=== PATIENT | male | born 1980 | race Caucasian/White ===

== ENCOUNTER 2020-01-02 10:04 | Outpatient (CLI) | payer MEDICARE, MEDICAID, SELFPAY ==
--- NOTE | 2020-01-02 | XR_ITS ---
WS: [id number] RIGHT SHOULDER: 3 VIEW(S) TECHNIQUE: Internal and external rotation with Y view. HISTORY: RIGHT SHOULDER PAIN COMPARISON: None available. No fracture or dislocation or soft tissue abnormality. Glenohumeral and AC joints are unremarkable. XR/XR shoulder RT min 2V* [id number] IMPRESSION: Normal RIGHT shoulder.
== END 2020-01-02 10:05 | disposition home or self-care (01) ==
LOC: RADOUTREAD 13:16
PROVIDERS: Family Provider Internal Medicine; PCP Internal Medicine; Visit Provider Internal Medicine
DX: Z76.89 Persons encountering health services in other specified circumstances (principal)

== ENCOUNTER 2020-01-16 11:43 | Outpatient (RCR) | payer MEDICARE, MEDICAID, SELFPAY | END 2020-01-21 23:59 | disposition home or self-care (01) | LOC: SPT 11:43 | PROVIDERS: Family Provider Internal Medicine; PCP Internal Medicine; Referring Provider Internal Medicine; Visit Provider Internal Medicine | DX: M25.511 Pain in right shoulder (principal) | CPT/HCPCS: 97110; 97112; 97161 ==

== ENCOUNTER → 2020-01-20 10:46 | Outpatient (BNVA) | payer MEDICARE, MEDICAID, SELFPAY | PROVIDERS: Family Provider Internal Medicine; PCP Internal Medicine; Visit Provider Nurse Practitioner | DX: M54.9 Dorsalgia, unspecified (principal); M25.561 Pain in right knee; M25.519 Pain in unspecified shoulder; Z79.891 Long term (current) use of opiate analgesic | CPT/HCPCS: 99214 ==

== ENCOUNTER 2020-01-22 06:00 | Outpatient (RCR) | payer MEDICARE, MEDICAID, SELFPAY | END 2020-02-21 23:59 | disposition home or self-care (01) | LOC: SPT 06:00 | PROVIDERS: Family Provider Internal Medicine; PCP Internal Medicine; Referring Provider Internal Medicine; Visit Provider Internal Medicine | DX: M25.511 Pain in right shoulder (principal) | CPT/HCPCS: 97110 ==

== ENCOUNTER → 2020-05-22 10:54 | Outpatient (BNVA) | payer MEDICARE, MEDICAID, SELFPAY | PROVIDERS: Family Provider Internal Medicine; PCP Internal Medicine; Visit Provider Anesthesiology | DX: M54.41 Lumbago with sciatica, right side (principal); M54.42 Lumbago with sciatica, left side; G89.29 Other chronic pain; M25.569 Pain in unspecified knee; Z79.891 Long term (current) use of opiate analgesic | CPT/HCPCS: 99214 ==

== ENCOUNTER → 2020-07-24 08:24 | Outpatient (BNVA) | payer MEDICARE, MEDICAID, SELFPAY | PROVIDERS: Family Provider Internal Medicine; PCP Internal Medicine; Visit Provider Anesthesiology | DX: G89.29 Other chronic pain (principal); M54.42 Lumbago with sciatica, left side; M54.41 Lumbago with sciatica, right side; M25.569 Pain in unspecified knee; Z79.891 Long term (current) use of opiate analgesic | CPT/HCPCS: 99214 ==

== ENCOUNTER → 2020-09-19 09:18 | Outpatient (BNVA) | payer MEDICARE, MEDICAID, SELFPAY | PROVIDERS: Family Provider Internal Medicine; PCP Internal Medicine; Visit Provider Anesthesiology | DX: M54.41 Lumbago with sciatica, right side (principal); M54.42 Lumbago with sciatica, left side; Z79.891 Long term (current) use of opiate analgesic | CPT/HCPCS: 99213; 99214 ==

== ENCOUNTER → 2020-11-06 08:25 | Outpatient (BNVA) | payer MEDICARE, MEDICAID, SELFPAY | PROVIDERS: Family Provider Internal Medicine; PCP Internal Medicine; Visit Provider Anesthesiology | DX: G89.29 Other chronic pain (principal); M54.5 Low back pain; M25.569 Pain in unspecified knee; Z79.891 Long term (current) use of opiate analgesic | CPT/HCPCS: 99213; 99214 ==

== ENCOUNTER → 2021-01-18 09:35 | Outpatient (BNVA) | payer MEDICARE, MEDICAID, SELFPAY | PROVIDERS: PCP Internal Medicine; Visit Provider Nurse Practitioner | DX: G89.29 Other chronic pain (principal); M54.5 Low back pain; M25.561 Pain in right knee; Z79.891 Long term (current) use of opiate analgesic | CPT/HCPCS: 99213; 99214 ==

== ENCOUNTER 2021-01-22 16:26 | Outpatient (CLI) | payer MEDICARE, MEDICAID, SELFPAY ==
--- NOTE | 2021-01-22 | MR_ITS ---
WS: [id number] MRI LEFT KNEE HISTORY: INTERNAL DERANGEMENT OF LEFT KNEE COMPARISON: 10/31/2017 Anterior cruciate ligament: Mild thinning of the ACL. There is very slight change in contour the mid to distal ACL which is probably an area of fibrosis and scarring. There is an osteophyte from the pos terior tibial plateau extending superiorly towards the ACL and may be causing some impingement. No fu ll-thickness tear. Posterior cruciate ligament: Intact. Medial collateral ligament: Intact. Posterior lateral corner structures: Intact. Medial menisci: Intact. Normal signal, size and shape. Lateral meniscus: Intact. Normal signal, size and shape. Extensor mechanism: Distal quadriceps tendon and patellar tendons are intact. Fluid and soft tissue: No joint effusion. No Kasper's cyst. Osseous and articular structures: Patellofemoral compartment: Mild irregularity in the cartilage surrounding the patella, greatest late rally. No full-thickness defects or marrow edema. No significant progression since the prior exam. Medial compartment: Mild narrowing medial compartment. There is fissuring and thinning of the cartila ge. No marrow edema or fracture. Lateral compartment: Mild narrowing of the lateral compartment with thinning and fissuring of the car tilage. No marrow edema or full-thickness cartilage defect. MR/MR knee LT wo con* [id number] IMPRESSION: 1. No fracture. 2. Mild thinning of the ACL but no full-thickness tear. Slight change in conto ur of the ACL suggests scarring and fibrosis. 3. Mild tricompartment osteoarthritis with cartilage thinning. No marrow edema or full-thickness cartilage defects.
== END 2021-01-22 16:27 | disposition home or self-care (01) ==
LOC: RADSHAW 16:30
PROVIDERS: PCP Internal Medicine; Visit Provider Internal Medicine
DX: M23.92 Unspecified internal derangement of left knee (principal); M17.12 Unilateral primary osteoarthritis, left knee
CPT/HCPCS: 73721

== ENCOUNTER → 2021-03-19 09:04 | Outpatient (BNVA) | payer MEDICARE, MEDICAID, SELFPAY | PROVIDERS: PCP Internal Medicine; Visit Provider Nurse Practitioner | DX: G89.29 Other chronic pain (principal); M54.5 Low back pain; M25.562 Pain in left knee; Z79.891 Long term (current) use of opiate analgesic | CPT/HCPCS: 99214 ==

== ENCOUNTER → 2021-04-11 09:58 | Outpatient (BNVA) | payer MEDICARE, MEDICAID, SELFPAY | PROVIDERS: PCP Internal Medicine; Visit Provider Anesthesiology | DX: G89.29 Other chronic pain (principal); M54.5 Low back pain; M25.561 Pain in right knee; M25.562 Pain in left knee; Z79.891 Long term (current) use of opiate analgesic | CPT/HCPCS: 99214 ==

== ENCOUNTER → 2021-06-19 13:33 | Outpatient (BNVA) | payer MEDICARE, MEDICAID, SELFPAY | PROVIDERS: PCP Internal Medicine; Visit Provider Nurse Practitioner | DX: G89.29 Other chronic pain (principal); M54.5 Low back pain; M25.569 Pain in unspecified knee; Z79.891 Long term (current) use of opiate analgesic; Z87.891 Personal history of nicotine dependence | CPT/HCPCS: 99212 ==

== ENCOUNTER → 2021-08-21 10:04 | Outpatient (BNVA) | payer MEDICARE, MEDICAID, SELFPAY | PROVIDERS: PCP Internal Medicine; Visit Provider Nurse Practitioner | DX: G89.29 Other chronic pain (principal); M54.5 Low back pain; M25.561 Pain in right knee; M25.562 Pain in left knee; Z79.891 Long term (current) use of opiate analgesic | CPT/HCPCS: 99214 ==

== ENCOUNTER → 2021-10-18 08:53 | Outpatient (BNVA) | payer MEDICARE, MEDICAID, SELFPAY | PROVIDERS: PCP Internal Medicine; Visit Provider Anesthesiology | DX: G89.29 Other chronic pain (principal); M54.50 Low back pain, unspecified; M25.561 Pain in right knee; M25.562 Pain in left knee; Z79.891 Long term (current) use of opiate analgesic | CPT/HCPCS: 99214 ==

== ENCOUNTER → 2021-12-17 09:42 | Outpatient (BNVA) | payer MEDICARE, MEDICAID, SELFPAY | PROVIDERS: PCP Internal Medicine; Visit Provider Anesthesiology | DX: G89.29 Other chronic pain (principal); M54.50 Low back pain, unspecified; M25.561 Pain in right knee; M25.562 Pain in left knee; Z87.81 Personal history of (healed) traumatic fracture | CPT/HCPCS: 99213; 99214 ==

== ENCOUNTER → 2021-12-31 07:55 | Outpatient (BNVA) | payer MEDICARE, MEDICAID, SELFPAY | PROVIDERS: PCP Internal Medicine; Visit Provider Anesthesiology | DX: G89.29 Other chronic pain (principal); M54.50 Low back pain, unspecified; M25.561 Pain in right knee; M25.562 Pain in left knee; Z87.891 Personal history of nicotine dependence; Z79.891 Long term (current) use of opiate analgesic | CPT/HCPCS: 99213 ==

== ENCOUNTER 2022-04-24 16:21 | Outpatient (CLI) | payer MEDICARE, MEDICAID, SELFPAY ==
--- NOTE | 2022-04-24 16:45 | MR_ITS ---
WS: [id number] MRI LUMBAR SPINE NONCONTRAST TECHNIQUE: Sagittal T1, T2 and STIR imaging. Axial T1 and T2 imaging. CLINICAL INFORMATION: RIGHT subarticular protrusion L3-L4 impinges the traversing RIGHT L4 nerve root with mild central canal stenosis. COMPARISON: MRI 2013 FINDINGS: Mild lumbar curve. No acute compression. Small disc protrusions L1-L2, L2-L3, L3-L4. L1-L2: Shallow RIGHT pericentral protrusion with impingement RIGHT subarticular recess and RIGHT jammie ersing L2 nerve root. Foramen are patent. Mild facet arthropathy. This is similar to 2013. L2-L3: Central LEFT pericentral disc protrusion impinges the LEFT subarticular recess and traversing LEFT L3 nerve root. Mild central canal stenosis. Foramen are patent. Mild facet arthropathy. This carolin ears similar to 2013. L3-L4: Annular bulging with a RIGHT subarticular protrusion. This impinges the traversing RIGHT L4 ne rve root in the subarticular recess. Moderate facet arthropathy. Mild central canal stenosis. Foramen are patent. L4-L5: Mild annular bulging. Slight narrowing of the RIGHT greater than LEFT subarticular recess. Mod erate facet arthropathy. Foramen are patent. L5-S1: Mild annular bulging. Tiny shallow central protrusion with a tiny LEFT annular fissure. Slight impingement traversing LEFT greater than RIGHT S1 nerve roots. Moderate facet arthropathy. Foramen a re patent. Small central protrusions at T2-T3 and T5-T6 in the thoracic spine with slight contact of the thoraci c cord. This can be further evaluated with thoracic spine MRI. MR/MR lumbar spine wo con* [id number] IMPRESSION: 1. Mild lumbar curve. No acute compression. 2. Central LEFT pericentral protrusion L2-L3 appears slightly progressed alejandro red to 2013. Mild to moderate central canal stenosis. Impingement on the janna sing LEFT greater than RIGHT L3 nerve roots. Otherwise lumbar spine findings ar e similar in appearance to 2013. 3. Shallow RIGHT pericentral protrusion L1-L2 impinges the traversing RIGHT L2 nerve root. 4. Shallow RIGHT pericentral protrusion L3-L4 impinges the traversing RIGHT L4 nerve root with mild central canal stenosis. 5. Annular bulging with shallow central protrusion L5-S1 with a tiny annular t ear slightly impinges the traversing S1 nerve roots. 6. Small central protrusions at T2-T3 and T5-T6 in the thoracic spine with sli ght contact of the thoracic cord. This can be further evaluated with thoracic s pine MRI.
== END 2022-04-24 16:22 | disposition home or self-care (01) ==
LOC: RAD 16:24
PROVIDERS: PCP Internal Medicine; Visit Provider General Practice
DX: M51.16 Intervertebral disc disorders with radiculopathy, lumbar region (principal); M51.17 Intervertebral disc disorders with radiculopathy, lumbosacral region; M51.24 Other intervertebral disc displacement, thoracic region; M48.061 Spinal stenosis, lumbar region without neurogenic claudication
CPT/HCPCS: 72148

== ENCOUNTER 2022-05-01 10:48 | Outpatient (CLI) | payer MEDICARE, MEDICAID, SELFPAY ==
--- NOTE | 2022-05-01 10:59 | MR_ITS ---
WS: [id number] MRI LEFT KNEE NONCONTRAST TECHNIQUE: Axial PD, coronal PD fat sat, coronal PD, sagittal PD, and sagittal PD fat-sat images obta ined. CLINICAL INFORMATION: LEFT KNEE DERANGMENT COMPARISON: MRI January 22, 2021 FINDINGS: Distal quadriceps and patella tendons are intact. Hypertrophic patella. Normal ACL and PCL. Small brunilda unt of prepatellar soft tissue edema. Normal medial and lateral meniscus. No acute appearing meniscal tears. Mild chronic thinning of the medial and lateral meniscus. Normal MCL and LCL. Moderate chondromalacia patella worse involving the lateral patella facet. Normal medial and lateral collateral ligaments. Normal popliteal fossa. Grade II to III chondromalacia involving the medial and lateral joint compartments. No subchondral edema. MR/MR knee LT wo con* [id number] IMPRESSION: 1. Normal ACL and PCL. 2. Grade II to III chondromalacia involving the medial lateral joint compartme nts. No acute appearing meniscal tears. 3. Moderate chondromalacia patella worse involving the lateral patella facet p rogressed compared to previous. 4. Normal MCL and LCL. Outbridge grading: grade III: partial-thickness cartilage loss with focal ulcer ation
== END 2022-05-01 10:49 | disposition home or self-care (01) ==
LOC: RAD 10:51
PROVIDERS: PCP Internal Medicine; Visit Provider Internal Medicine
DX: M23.92 Unspecified internal derangement of left knee (principal); M22.42 Chondromalacia patellae, left knee
CPT/HCPCS: 73721

== ENCOUNTER → 2022-05-29 10:46 | Outpatient (BNVA) | payer MEDICARE, MEDICAID, SELFPAY | PROVIDERS: PCP Internal Medicine; Referring Provider Internal Medicine; Visit Provider Nurse Practitioner Family | DX: M25.562 Pain in left knee (principal); G89.29 Other chronic pain | CPT/HCPCS: 73560; 73565; 99204 ==

== ENCOUNTER → 2024-07-06 09:24 | Outpatient (BNVA) | payer MEDICARE, MEDICAID, SELFPAY | PROVIDERS: PCP Internal Medicine; Visit Provider Internal Medicine | DX: E78.2 Mixed hyperlipidemia; E11.319 Type 2 diabetes mellitus with unspecified diabetic retinopathy without macular edema; Z79.4 Long term (current) use of insulin; Z86.73 Personal history of transient ischemic attack (TIA), and cerebral infarction without residual deficits; Z79.84 Long term (current) use of oral hypoglycemic drugs | CPT/HCPCS: 99204 ==

== ENCOUNTER → 2024-08-05 11:37 | Outpatient (BNVA) | payer MEDICARE, MEDICAID, OTHER, SELFPAY | PROVIDERS: PCP Internal Medicine; Visit Provider Nurse Practitioner Psychiatric/Mental Health | DX: Z79.899 Other long term (current) drug therapy (principal) | CPT/HCPCS: 80053; 80061; 83036 ==

== ENCOUNTER 2024-08-11 14:17 | Outpatient (CLI) | payer MEDICARE, MEDICAID, SELFPAY ==
--- NOTE | 2024-08-11 14:27 | XR_ITS ---
WS: [id number] Left shoulder, 2 views, 08/11/2024 Clinical Data: L SHOULDER PAIN Comparison: None. Findings: No fractures or dislocations are seen. The AC joint is normal. The adjacent left clavicle, left scapu la and ribs are normal. The soft tissues are unremarkable. XR/XR shoulder LT min 2V* [id number] Impression: Negative left shoulder.
== END 2024-08-11 14:18 | disposition home or self-care (01) ==
PROVIDERS: PCP Internal Medicine; Visit Provider Nurse Practitioner Family
DX: M25.512 Pain in left shoulder (principal)
CPT/HCPCS: 73030

== ENCOUNTER → 2024-08-17 09:26 | Outpatient (BNVA) | payer MEDICARE, MEDICAID, SELFPAY | PROVIDERS: PCP Internal Medicine; Visit Provider Internal Medicine | DX: E11.9 Type 2 diabetes mellitus without complications (principal); E78.2 Mixed hyperlipidemia; Z79.4 Long term (current) use of insulin; Z79.84 Long term (current) use of oral hypoglycemic drugs | CPT/HCPCS: 99214 ==

== ENCOUNTER → 2024-09-08 14:57 | Outpatient (BNVA) | payer MEDICARE, SELFPAY | PROVIDERS: PCP Internal Medicine; Visit Provider Podiatrist Foot & Ankle Surgery | DX: G62.9 Polyneuropathy, unspecified (principal); E11.42 Type 2 diabetes mellitus with diabetic polyneuropathy; Z79.4 Long term (current) use of insulin | CPT/HCPCS: 99203 ==

== ENCOUNTER → 2024-10-12 09:30 | Outpatient (BNVA) | payer MEDICARE, OTHER, SELFPAY | PROVIDERS: PCP Internal Medicine; Visit Provider Internal Medicine | DX: E11.9 Type 2 diabetes mellitus without complications (principal); E78.2 Mixed hyperlipidemia; Z79.4 Long term (current) use of insulin; Z79.84 Long term (current) use of oral hypoglycemic drugs | CPT/HCPCS: 99214 ==

== ENCOUNTER → 2024-11-07 14:12 | Outpatient (BNVA) | payer MEDICARE, OTHER, SELFPAY | PROVIDERS: PCP Internal Medicine; Visit Provider Nurse Practitioner Psychiatric/Mental Health | DX: F31.63 Bipolar disorder, current episode mixed, severe, without psychotic features (principal); Z79.899 Other long term (current) drug therapy | CPT/HCPCS: 80053; 80164 ==

== ENCOUNTER → 2024-12-22 10:31 | Outpatient (BNVA) | payer MEDICARE, MEDICAID, SELFPAY | PROVIDERS: PCP Internal Medicine; Visit Provider Internal Medicine | DX: E11.9 Type 2 diabetes mellitus without complications (principal); E78.2 Mixed hyperlipidemia | CPT/HCPCS: 99214 ==

== ENCOUNTER 2025-01-13 11:41 | Outpatient (CLI) | payer MEDICARE, MEDICAID, SELFPAY ==
[2025-01-13 12:47] LABS: Alanine Aminotransferase 17 U/L (0-41); Albumin Level 4.1 g/dL (3.5-5.2); Alkaline Phosphatase 79 U/L (40-130); Aspartate Amino Transferase 15 U/L (0-40); Blood Urea Nitrogen 18 mg/dL (6-20); Carbon Dioxide 27 mmol/L (22-29); Chloride 92 mmol/L (98-107); Globulin 3.9 g/dL (1.3-4.6); Glucose 199 mg/dL (65-115); Osmolality Calculated 283 mOsm/kg (285-295); Sodium 133 mmol/L (136-145); Total Bilirubin 0.4 mg/dL (0.15-1.2)
[2025-01-13 12:48] LABS: Anion Gap 18.2 (5-19); Potassium 4.2 mmol/L (3.5-5.1)
[2025-01-14 09:14] LABS: C-Peptide 1.87 ng/mL (0.80-3.85)
== END 2025-01-13 11:42 | disposition home or self-care (01) ==
LOC: LAB 11:43
PROVIDERS: PCP Family Medicine; Visit Provider Internal Medicine
DX: Z79.891 Long term (current) use of opiate analgesic (principal); E11.9 Type 2 diabetes mellitus without complications
CPT/HCPCS: 36415; 80053; 84681; 86337; 86341

== ENCOUNTER → 2025-03-14 12:43 | Outpatient (BNVA) | payer MEDICARE, SELFPAY | PROVIDERS: PCP Family Medicine; Visit Provider Podiatrist Foot & Ankle Surgery | DX: G62.9 Polyneuropathy, unspecified (principal); E11.42 Type 2 diabetes mellitus with diabetic polyneuropathy; Z79.84 Long term (current) use of oral hypoglycemic drugs; Z79.4 Long term (current) use of insulin | CPT/HCPCS: 99213 ==

== ENCOUNTER 2025-03-21 08:14 | Outpatient (CLI) | payer MEDICARE, SELFPAY ==
[2025-03-21 09:40] LABS: Estmated Average Glucose 200; Hemoglobin A1C 8.6 % (4.0-6.0)
[2025-03-21 09:45] LABS: Alanine Aminotransferase 17 U/L (0-41); Albumin Level 4.1 g/dL (3.5-5.2); Alkaline Phosphatase 62 U/L (40-130); Anion Gap 14.9 (5-19); Aspartate Amino Transferase 13 U/L (0-40); Blood Urea Nitrogen 15 mg/dL (6-20); Calcium 8.8 mg/dL (8.5-10.5); Carbon Dioxide 29 mmol/L (22-29); Chloride 99 mmol/L (98-107); Chol HDL Ratio 4.54 mg/dL (1.0-5.00); Cholesterol 168 mg/dL (0-200); Globulin 3.5 g/dL (1.3-4.6); Glucose 147 mg/dL (65-115); HDL Cholesterol 37 mg/dL (60-100); LDL Cholesterol Calculated 96 mg/dL (50-129); LDL HDL Ratio 2.59 RATIO (0.00-3.22); Osmolality Calculated 292 mOsm/kg (285-295); Potassium 3.9 mmol/L (3.5-5.1); Sodium 139 mmol/L (136-145); Total Bilirubin 0.3 mg/dL (0.15-1.2); Total Protein 7.6 g/dL (6.6-8.7); Triglycerides 174 mg/dL (0-150)
[2025-03-21 16:55] LABS: Creatinine Urine, Random 46 mg/dL (39-259); Microalbumin Random Urine 6 ug/dL (0-20)
[2025-03-21 16:56] LABS: Microalbum Creatinine Ratio Ur 130 mg/dL (0-20)
== END 2025-03-21 08:15 | disposition home or self-care (01) ==
PROVIDERS: PCP Family Medicine; Visit Provider Internal Medicine
DX: E11.9 Type 2 diabetes mellitus without complications (principal); E78.2 Mixed hyperlipidemia
CPT/HCPCS: 36415; 80053; 80061; 82044; 83036

== ENCOUNTER → 2025-03-22 07:59 | Outpatient (BNVA) | payer MEDICARE, MEDICAID, SELFPAY | PROVIDERS: PCP Internal Medicine; Visit Provider Internal Medicine | DX: E11.9 Type 2 diabetes mellitus without complications (principal); E78.2 Mixed hyperlipidemia; I16.0 Hypertensive urgency | CPT/HCPCS: 99215 ==

== ENCOUNTER 2025-03-22 09:43 | Emergency (ER) | payer MEDICARE, MEDICAID, SELFPAY ==
--- NOTE | 2025-03-22 09:48 | ECG_ITS ---
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 Measurements Intervals [place] Rate: 73 P: 54 MT: 132 QRS: 22 QRSD: 98 T: 51 QT: 406 QTc: 448 Interpretive Statements SINUS RHYTHM No previous ECG available for comparison Electronically Signed On 03-27-2025 10:16:04 CDT by Fabián Purvis M.D. [email or web address] [id number]
[2025-03-22 09:49] VITALS: BP 225/103; PULSE 80; RESP 16; TEMP 36.7; O2SAT 94; BMI 46.1
[2025-03-22 09:59] LABS: Basophils # 0.1 10^3/uL (0.0-0.1); Basophils % 0.8 %; Eosinophils # 0.2 10^3/uL (0.0-0.8); Eosinophils % 2.2 %; Lymphocytes # 2.2 10^3/uL (0.8-4.8); Lymphocytes % 23.8 %; Mean Corpuscular Hemoglobin 26.9 pg (27-33); Mean Platelet Volume 8.7 fL (7.4-10.4); Monocytes # 0.7 10^3/uL (0.2-0.9); Neutrophils # 5.85 10^3/uL (1.8-7.7); Neutrophils % 64.5 %; Nucleated Red Blood Cells % 0 %; Platelet Count 334 10^3/cmm (157-399); Red Blood Count 5.24 10^6/uL (3.85-5.65); White Blood Count 9.05 10^3/uL (3.29-11.43)
--- NOTE | 2025-03-22 10:00 | W.ED.GENADLT ---
HPI - General Adult General: Chief complaint: General Medical Stated complaint: Ezequiel olivier, high BP Time Seen by Provider: 03/22/25 09:46 History of Present Illness: 44-year-old male presents emergency room from the endocrinology clinic he was being seen there for his diabetes. He has not taken any of his medications last several days. His blood pressure was markedly elevated he has some mild chest discomfort. No difficulty with vision or headache. He denies any nausea vomiting or diarrhea. He simply does not take his medications of convenience. He also states he had some difficulty with erections that improves when he does not take his medications. Associated symptoms: Deny chest pain, dyspnea or rash Related Data Home Medications ?Medication ?Instructions ?Recorded ?Confirmed dapagliflozin propanediol 10 mg 10 mg PO DAILY 01/19/20 03/22/25 tablet (Farxiga) lisinopril 40 mg tablet 40 mg PO DAILY 01/19/20 03/22/25 metformin 500 mg tablet 500 mg PO BID 09/19/20 03/22/25 aspirin 81 mg tablet,delayed 81 mg PO DAILY PRN Pain 06/19/21 03/22/25 release divalproex 250 mg tablet,delayed 250 mg PO DAILY 03/22/25 03/22/25 release hydrochlorothiazide 25 mg tablet 25 mg PO DAILY 03/22/25 03/22/25 insulin aspart U-100 100 unit/mL See Rx Instructions .Route .COMPLEX 03/22/25 03/22/25 (3 mL) subcutaneous pen (Novolog FlexPen U-100 Insulin aspart) levothyroxine 112 mcg tablet 112 mcg PO DAILY 03/22/25 03/22/25 oxycodone 10 mg tablet See Rx Instructions .Route .COMPLEX 03/22/25 03/22/25 semaglutide 0.25 mg or 0.5 mg (2 0.25 mg SUBCUT Q7D 03/22/25 03/22/25 mg/3 mL) subcutaneous pen injector (Ozempic) Previous Rx's ?Medication ?Instructions ?Recorded gabapentin 800 mg tablet 800 mg PO TID pain 30 days #90 tabs 12/31/21 divalproex 500 mg tablet,delayed 1,000 mg (2 x 500 mg) PO .8 pm #60 01/19/25 release (Depakote) tabs amlodipine 2.5 mg tablet 2.5 mg PO DAILY #30 tabs 03/22/25 atorvastatin 20 mg tablet (Lipitor) 20 mg PO DAILY #30 tabs 03/22/25 Allergies Allergy/AdvReac Type Severity Reaction Status Date / Time No Known Allergies Allergy Verified 03/22/25 09:57 Review of Systems Const: Denies: fever(s) or chills Card: Denies: chest pain Resp: Denies: dyspnea GI: Denies: abdominal pain : Denies: dysuria, urinary frequency or urinary urgency Musc: Denies: neck pain or back pain Skin/Breast: Denies: rash PFSH ED PFSH: Medical History Autism spectrum disorder Bipolar I, most recent episode mixed, severe Psychiatric care Chronic low back pain Encounter for long-term opiate analgesic use Low back pain of over 3 months duration Opioid contract exists Chronic knee 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 Right. Hx of cataract extraction Cataract Removal, Insert Prosthetic Lens ? Bilateral. Family History Unknown Hypertension Diabetes CAD (coronary artery disease) Obesity Social History Smoking and tobacco/nicotine status: never used tobacco/nicotine Second hand smoke exposure: No Alcohol intake: never Substance/Drug Use: never Physical Exam Const: COMMON NORMALS: no acute distress GENERAL APPEARANCE: cooperative and comfortable ORIENTATION/CONSCIOUSNESS: Yes awake, Yes oriented to person, Yes oriented to place and Yes oriented to time HENMT: COMMON NORMALS: normocephalic, atraumatic and hearing grossly normal bilaterally HEAD & SCALP: normocephalic and atraumatic Resp: COMMON NORMALS: normal respiratory effort, No retractions, No use of accessory muscles and clear to auscultation bilaterally AUSCULTATION: clear to auscultation bilaterally Cardio: COMMON NORMALS: regular rate, regular rhythm and No murmurs present (Cardio) RATE: regular rate RHYTHM: regular rhythm GI: COMMON NORMALS: Soft to palpation and No hepatosplenomegaly present AUSCULTATION: Yes normoactive bowel sounds PALPATION: Yes Soft to palpation, No Tenderness to palpation present (GI), No Guarding due to palpation present (GI) and Yes No hepatosplenomegaly present Extremity: COMMON NORMALS: normal to inspection, capillary refill normal, no clubbing, cyanosis or edema, no calf tenderness and no pedal edema Neuro: SENSORIUM/ORIENTATION: Yes oriented to person, Yes oriented to place and Yes oriented to time OTHER: No focal neurologic deficits no lateralizing deficits. Skin: COMMON NORMALS: no rashes or lesions noted GENERAL SKIN EXAM: no rashes or lesions noted Course Vital Signs: Vital signs: Vital Signs Temperature 98.0 F 03/22/25 09:49 Pulse Rate 82 03/22/25 11:27 Respiratory Rate 16 03/22/25 10:33 Blood Pressure 180/91 03/22/25 11:27 Pulse Oximetry 95 03/22/25 11:27 Oxygen Delivery Me thod Room Air 03/22/25 10:33 MDM - General Adult Medical Decision Making Blood pressure slightly improved. Patient is anxious to leave we will start amlodipine 2.5 mg daily stop the simvastatin and start atorvastatin follow-up with primary care within a week to reevaluate blood pressure. EKG does not show any acute changes. No focal neurologic findings on exam. Patient does not wish to wait any longer and is insisting on being discharged. He should resume his other medications with the exception of the changes that we indicated today Medical Records I reviewed the patient's medical records. Lab Data I reviewed the patient's lab results. 03/22/25 09:54 03/22/25 09:54 Laboratory Results WBC 9.05 10^3/uL (3.29-11.43) 03/22/25 09:54 RBC 5.24 10^6/uL (3.85-5.65) 03/22/25 09:54 Hgb 14.10 g/dL (11.27-16.99) 03/22/25 09:54 Hct 44.0 % (37-53) 03/22/25 09:54 MCV 84.0 fl (82-101) 03/22/25 09:54 MCH 26.9 pg (27-33) L 03/22/25 09:54 MCHC 32.0 g/dL (30-55) 03/22/25 09:54 RDW 14.0 % (12.1-15.1) 03/22/25 09:54 Plt Count 334 10^3/cmm (157-399) 03/22/25 09:54 MPV 8.7 fL (7.4-10.4) 03/22/25 09:54 Neut % (Auto) 64.5 % 03/22/25 09:54 Lymph % (Auto) 23.8 % 03/22/25 09:54 Woods % (Auto) 8.0 % 03/22/25 09:54 Eos % (Auto) 2.2 % 03/22/25 09:54 Baso % (Auto) 0.8 % 03/22/25 09:54 Neut # (Auto) 5.85 10^3/uL (1.8-7.7) 03/22/25 09:54 Lymph # (Auto) 2.2 10^3/uL (0.8-4.8) 03/22/25 09:54 Woods # (Auto) 0.7 10^3/uL (0.2-0.9) 03/22/25 09:54 Eos # (Auto) 0.2 10^3/uL (0.0-0.8) 03/22/25 09:54 Baso # (Auto) 0.1 10^3/uL (0.0-0.1) 03/22/25 09:54 Nucleated RBC % (auto) 0 % 03/22/25 09:54 Nucleated RBCs # 0.0 /100WBC 03/22/25 09:54 Sodium 139 mmol/L (136-145) 03/22/25 09:54 Potassium 4.1 mmol/L (3.5-5.1) 03/22/25 09:54 Chloride 100 mmol/L (98-107) 03/22/25 09:54 Carbon Dioxide 27 mmol/L (22-29) 03/22/25 09:54 Anion Gap 16.1 (5-19) 03/22/25 09:54 BUN 19 mg/dL (6-20) 03/22/25 09:54 Creatinine 0.6 mg/dL (0.7-1.2) L 03/22/25 09:54 GFR Calculation 145.0 mL/min (90-130) H 03/22/25 09:54 Glucose 195 mg/dL (65-115) H 03/22/25 09:54 Calculated Osmolality 296 mOsm/kg (285-295) H 03/22/25 09:54 Calcium 9.2 mg/dL (8.5-10.5) 03/22/25 09:54 Total Bilirubin 0.3 mg/dL (0.15-1.2) 03/22/25 09:54 AST 13 U/L (0-40) 03/22/25 09:54 ALT 17 U/L (0-41) 03/22/25 09:54 Alkaline Phosphatase 72 U/L (40-130) 03/22/25 09:54 Total Protein 7.5 g/dL (6.6-8.7) 03/22/25 09:54 Albumin 4.2 g/dL (3.5-5.2) 03/22/25 09:54 Globulin 3.3 g/dL (1.3-4.6) 03/22/25 09:54 No radiology studies performed this visit Discharge Plan Discharge Patient Disposition: Home Clinical Impression: Hypertensive urgency Condition: Stable Prescriptions: New amlodipine 2.5 mg tablet 2.5 mg PO DAILY Qty: 30 0RF atorvastatin [Lipitor] 20 mg tablet 20 mg PO DAILY Qty: 30 0RF Discontinued simvastatin 40 mg tablet 40 mg PO DAILY No Action metformin 500 mg tablet 500 mg PO BID aspirin 81 mg tablet,delayed release (DR/EC) 81 mg PO DAILY PRN (Reason: Pain) lisinopril 40 mg tablet 40 mg PO DAILY Farxiga 10 mg tablet 10 mg PO DAILY gabapentin 800 mg tablet 800 mg PO TID 30 Days Qty: 90 1RF divalproex [Depakote] 500 mg tablet,delayed release (DR/EC) 1,000 mg PO .8 pm Qty: 60 3RF Rx Instructions: Take two tablets at 8 pm divalproex 250 mg tablet,delayed release (DR/EC) 250 mg PO DAILY hydrochlorothiazide 25 mg tablet 25 mg PO DAILY levothyroxine 112 mcg tablet 112 mcg PO DAILY insulin aspart U-100 [Novolog FlexPen U-100 Insulin] 100 unit/mL (3 mL) insulin pen See Rx Instructions .ROUTE .COMPLEX Rx Instructions: INJECT PER SLIDING SCALE THREE TIMES DAILY MAX OF 48 UNITS DAILY oxycodone 10 mg tablet See Rx Instructions .ROUTE .COMPLEX Rx Instructions: take 1/2 to 1 tablet BY MOUTH EVERY 6 HOURS NEEDED FOR 30 Ozempic 0.25 mg or 0.5 mg (2 mg/3 mL) pen injector 0.25 mg SUBCUT Q7D Discharge Orders: Discharge ED (Routine); Ordered 03/22/25 Ordered By: Osmel Preciado Referrals: Chapin Leyva MD [Primary Care Provider, Family Practice] Discharge Diet: Usual diet Discharge Activity: Resume usual activity Patient Instructions: Opioid Safety, Pain Management Activity Restrictions/Additional Instructions: Thank you for choosing [facility] for your healthcare needs today. It is very important that you follow up as instructed or that you return to the Emergency Department should you have concerns or if your condition changes or worsens in any way. You were seen in the emergency room with elevated blood pressure. Your laboratory test did not show significant abnormal findings. Your EKG did not show any acute changes. We recommend you take your medications regularly follow-up with your primary care doctor regarding side effects of her medications. Do recommend that you add amlodipine 2.5 mg daily. 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
[2025-03-22] MEDS: hyDRALAzine 20 mg/mL INJ 1 mL IVP (10:10)
[2025-03-22] MEDS: labetalol 5 mg/mL SDV 20mL 10 MG IVP (10:12)
[2025-03-22 10:21] LABS: Alanine Aminotransferase 17 U/L (0-41); Albumin Level 4.2 g/dL (3.5-5.2); Alkaline Phosphatase 72 U/L (40-130); Anion Gap 16.1 (5-19); Aspartate Amino Transferase 13 U/L (0-40); Blood Urea Nitrogen 19 mg/dL (6-20); Calcium 9.2 mg/dL (8.5-10.5); Carbon Dioxide 27 mmol/L (22-29); Chloride 100 mmol/L (98-107); Creatinine Clr Calc Pharmacy 242.4913; Globulin 3.3 g/dL (1.3-4.6); Glucose 195 mg/dL (65-115); Osmolality Calculated 296 mOsm/kg (285-295); Potassium 4.1 mmol/L (3.5-5.1); Sodium 139 mmol/L (136-145); Total Bilirubin 0.3 mg/dL (0.15-1.2); Total Protein 7.5 g/dL (6.6-8.7)
[2025-03-22 10:33] VITALS: BP 182/90; PULSE 86; RESP 16; O2SAT 94
[2025-03-22] MEDS: FUROsemide 10 mg/mL SDV 4mL 40 MG IVP (10:33)
[2025-03-22 11:14] VITALS: BP 181/92; PULSE 85; O2SAT 95
[2025-03-22] MEDS: enalaprilat 2.5 mg/2 mL SDV 1.25 MG IVP (11:26)
[2025-03-22 11:27] VITALS: BP 180/91; PULSE 82; O2SAT 95
[2025-03-22 12:02] VITALS: BP 167/77; PULSE 79; O2SAT 98
== END 2025-03-22 12:06 | disposition home or self-care (01) ==
PROVIDERS: Emergency Provider Family Medicine; PCP Family Medicine
DX: I16.0 Hypertensive urgency (principal); Z79.84 Long term (current) use of oral hypoglycemic drugs; Z79.82 Long term (current) use of aspirin; Z79.4 Long term (current) use of insulin
CPT/HCPCS: 80053; 85025; 93005; 96374; 96375; 99284; J0360; J1940; J3490; J9999

== ENCOUNTER → 2025-04-27 14:44 | Outpatient (BNVA) | payer MEDICARE, SELFPAY | PROVIDERS: PCP Family Medicine; Visit Provider Nurse Practitioner Psychiatric/Mental Health | DX: Z79.899 Other long term (current) drug therapy (principal); F31.63 Bipolar disorder, current episode mixed, severe, without psychotic features; F84.0 Autistic disorder | CPT/HCPCS: 80164 ==

== ENCOUNTER → 2025-07-06 09:35 | Outpatient (BNVA) | payer MEDICARE, MEDICAID, SELFPAY | PROVIDERS: PCP Family Medicine; Visit Provider Internal Medicine | DX: E11.9 Type 2 diabetes mellitus without complications (principal); E78.2 Mixed hyperlipidemia | CPT/HCPCS: 99214 ==

== ENCOUNTER → 2025-08-04 16:41 | Outpatient (BNVA) | payer MEDICARE, OTHER, SELFPAY | PROVIDERS: PCP Family Medicine; Visit Provider Nurse Practitioner Psychiatric/Mental Health | DX: Z79.899 Other long term (current) drug therapy (principal); E78.2 Mixed hyperlipidemia; I16.0 Hypertensive urgency; E11.9 Type 2 diabetes mellitus without complications | CPT/HCPCS: 80053; 80164 ==

== ENCOUNTER → 2025-09-07 13:00 | Outpatient (BNVA) | payer MEDICARE, MEDICAID, SELFPAY | PROVIDERS: PCP Family Medicine; Referring Provider Family Medicine; Visit Provider Specialist | DX: G56.21 Lesion of ulnar nerve, right upper limb (principal); R20.0 Anesthesia of skin; R20.2 Paresthesia of skin | CPT/HCPCS: 95911 ==

== ENCOUNTER → 2025-09-12 12:59 | Outpatient (BNVA) | payer MEDICARE, MEDICAID, SELFPAY | PROVIDERS: PCP Family Medicine; Visit Provider Podiatrist Foot & Ankle Surgery | DX: E11.8 Type 2 diabetes mellitus with unspecified complications (principal); G62.9 Polyneuropathy, unspecified; Z79.84 Long term (current) use of oral hypoglycemic drugs; Z79.4 Long term (current) use of insulin; Z79.85 Long-term (current) use of injectable non-insulin antidiabetic drugs | CPT/HCPCS: 99213 ==

== ENCOUNTER → 2025-10-11 10:48 | Outpatient (BNVA) | payer MEDICARE, MEDICAID, SELFPAY | PROVIDERS: PCP Family Medicine; Visit Provider Nurse Practitioner Psychiatric/Mental Health | DX: Z03.89 Encounter for observation for other suspected diseases and conditions ruled out (principal); Z79.899 Other long term (current) drug therapy | CPT/HCPCS: 80053; 82306; 84403 ==